=== PATIENT | male | born 1960 ===

== ENCOUNTER → 2023-05-10 | Outpatient (CLI) | payer SELFPAY | END | disposition home or self-care (01) | LOC: LAB SHORT 13:57 → LAB 13:57 | DX: R30.0 Dysuria (principal) | CPT/HCPCS: 87086 ==

== ENCOUNTER 2024-12-23 21:41 | Inpatient (IN) | payer OTHER ==
[~2024-12-23] VITALS: Ht 193 cm; Wt 106.4 kg
[~2024-12-23 21:41] MED LIST: ASPIR 8181 M1 PO; ELIQUIS5 M2 PO; ENTRESTO 49 MG1 EACH PO; FLUT.05NI; FURO20 PO; FURO40 PO; JARDIANCE10 MG PO; KATERZIA1 MG/1 ML PO; LANOXIN250 MCG PO; LOSA50 PO; METO25ER PO
[2024-12-23 22:14] LABS: BASOPHILS ABSOLUTE AUTO 0.07 K/mm3 (0.00-0.23); BASOPHILS PERCENT AUTO 1 % (0-2); EOSINOPHILS ABSOLUTE AUTO 0.29 K/mm3 (0.00-0.68); EOSINOPHILS PERCENT AUTO 4 % (0-6); Hematocrit 48.5 % (37.0-53.0); Hemoglobin 16.1 g/dL (13.5-17.5); IMMATURE GRAN ABSOLUTE AUTO 0.03 K/mm3 (0.00-0.10); IMMATURE GRAN PERCENT AUTO 0 % (0-1); LYMPHOCYTES ABSOLUTE AUTO 1.90 K/mm3 (0.84-5.20); LYMPHOCYTES PERCENT AUTO 23 % (21-46); MONOCYTES ABSOLUTE AUTO 0.74 K/mm3 (0.16-1.47); MONOCYTES PERCENT AUTO 9 % (4-13); Mean Corpuscular HGB Conc 33.2 g/dL (31.5-36.5); Mean Corpuscular Volume 85 fL (80-100); NEUTROPHILS ABSOLUTE AUTO 5.22 K/mm3 (1.96-9.15); NEUTROPHILS PERCENT AUTO 63 % (41-73); NRBC ABSOLUTE 0.00 K/mm3 (0.00-0.02); NRBC Auto 0.0 /100 WBC (0.0-0.2); Platelet Count 240 K/mm3 (150-400); RDW Coefficient Variation 17.3 % (11.7-14.2); RDW Standard Deviation 53.0 fL (35.1-46.3)
[2024-12-23 22:41] LABS: Alanine Aminotransfer (ALT/SGP 26.0 U/L (12-78); Albumin, Blood 3.8 g/dL (3.4-5.0); Albumin/Globulin Ratio 1.0 (0.8-1.8); Anion Gap 9.0 mmol/L (3-11); Aspartate Aminotrans (AST/SGOT 21.0 U/L (12-37); Bilirubin, Total 0.9 mg/dL (0.1-1.0); Blood Urea Nitrogen 24.0 mg/dL (8-24); CO2, Blood 23.0 mmol/L (21-32); Calcium, Blood 8.8 mg/dL (8.5-10.1); Chloride, Blood 111.0 mmol/L (98-108); Creatinine, Blood 1.33 mg/dL (0.60-1.20); Globulin, Blood 3.8 g/dL (2.2-4.0); Glucose, Blood 118.0 mg/dL (70-99); Potassium, Blood 3.7 mmol/L (3.5-5.5); Sodium, Blood 139.0 mmol/L (136-145); Total Protein, Blood 7.6 g/dL (6.4-8.2)
[2024-12-24] VITALS (8 sets, daily range): BP systolic 120–173; BP diastolic 86–109
[2024-12-24 01:12] LABS: Prothrombin Time Results 13.3 Sec (9.7-11.5)
[2024-12-24] MEDS ORDERED: Dose Adjust by Pharmacy XX STA ×2 (01:30→05:31)
[2024-12-24] MEDS ORDERED: Metoprolol Tartrate 1 MG/ML 5 ML VIAL IV ONE (02:45)
[2024-12-24] MEDS ORDERED: Heparin Sodium,Porcine/0.5 NS 500 ML IV SCH (06:00)
[2024-12-24] MEDS ORDERED: AMLO5 PO (06:14)
[2024-12-24 08:38] LABS: BASOPHILS ABSOLUTE AUTO 0.06 K/mm3 (0.00-0.23); BASOPHILS PERCENT AUTO 1 % (0-2); EOSINOPHILS ABSOLUTE AUTO 0.24 K/mm3 (0.00-0.68); EOSINOPHILS PERCENT AUTO 3 % (0-6); Hematocrit 49.6 % (37.0-53.0); Hemoglobin 16.6 g/dL (13.5-17.5); IMMATURE GRAN ABSOLUTE AUTO 0.05 K/mm3 (0.00-0.10); IMMATURE GRAN PERCENT AUTO 1 % (0-1); LYMPHOCYTES ABSOLUTE AUTO 1.59 K/mm3 (0.84-5.20); LYMPHOCYTES PERCENT AUTO 21 % (21-46); MONOCYTES ABSOLUTE AUTO 0.69 K/mm3 (0.16-1.47); MONOCYTES PERCENT AUTO 9 % (4-13); Mean Corpuscular HGB Conc 33.5 g/dL (31.5-36.5); Mean Corpuscular Volume 86 fL (80-100); NEUTROPHILS ABSOLUTE AUTO 4.81 K/mm3 (1.96-9.15); NEUTROPHILS PERCENT AUTO 65 % (41-73); NRBC ABSOLUTE 0.00 K/mm3 (0.00-0.02); NRBC Auto 0.0 /100 WBC (0.0-0.2); Platelet Count 235 K/mm3 (150-400); RDW Coefficient Variation 17.7 % (11.7-14.2); RDW Standard Deviation 54.2 fL (35.1-46.3)
[2024-12-24 08:59] LABS: Anion Gap 10.0 mmol/L (3-11); Blood Urea Nitrogen 16.0 mg/dL (8-24); CO2, Blood 23.0 mmol/L (21-32); Calcium, Blood 8.8 mg/dL (8.5-10.1); Chloride, Blood 111.0 mmol/L (98-108); Creatinine, Blood 0.94 mg/dL (0.60-1.20); Glucose, Blood 90.0 mg/dL (70-99); Potassium, Blood 3.6 mmol/L (3.5-5.5); Sodium, Blood 140.0 mmol/L (136-145)
[2024-12-24 13:14] LABS: CHOL/HDL RATIO 3.0; Cholesterol 170 mg/dL (50-200); HDL Cholesterol 57 mg/dL (>39); LDL/HDL RATIO 1.8; Low Density Lipoprotein Chol 101 mg/dL (0-110); Triglycerides 61 mg/dL (30-160); Very Low Density Lipoprot Chol 12 mg/dL (6-32)
[2024-12-24] MEDS ORDERED: Heparin Sodium 1000 Units/ML 10ML MDV ONE (16:12)
[2024-12-24] MEDS ORDERED: NS 2,000 ML IV ONE (16:13)
[2024-12-24] MEDS ORDERED: NS 250 ML IV ONE (16:13)
[2024-12-24] MEDS ORDERED: Nitroglycerin 2 MG/20 ML BTL ONE (16:13)
[2024-12-24] MEDS ORDERED: Verapamil HCL 2.5 MG/ML 2ML Injection ONE (16:23)
[2024-12-24] MEDS ORDERED: Midazolam HCl 1MG / ML 2ML Vial ONE (16:46)
[2024-12-24] MEDS ORDERED: FentaNYL Citrate 50 MCG/ML 2 ML Injection ONE (16:46)
--- NOTE | 2024-12-24 18:52 | NUR ---
Admit/ End of shift note. Pt admitted from the ED into PCU14. Pt was oriented to room and call light system. Pt has denied CP since arriving to the unit. Trops finally peaked. Pt has been on hep gtt until he was taken to the catheter builder. Pt vocalized a significant amount of concerns about his financial situation. industrial engineering manager visited with Pt and gave options. No interventions during angio this afternoon, Cardiology is recommending a COBRA transfer to a larger hospital for a CTS consult. Hep gtt dc d, all home meds were given. Pt is able to make needs known. Call light is within reach.
[2024-12-24] MEDS ORDERED: Sacubitril/Valsartan 49 MG/51 MG Tab PO SCH (21:00)
[2024-12-25] VITALS: BP 113/90
[2024-12-25 04:00] VITALS: BP 118/79
[2024-12-25 06:09] LABS: BASOPHILS ABSOLUTE AUTO 0.06 K/mm3 (0.00-0.23); BASOPHILS PERCENT AUTO 1 % (0-2); EOSINOPHILS ABSOLUTE AUTO 0.24 K/mm3 (0.00-0.68); EOSINOPHILS PERCENT AUTO 3 % (0-6); Hematocrit 51.5 % (37.0-53.0); Hemoglobin 16.8 g/dL (13.5-17.5); IMMATURE GRAN ABSOLUTE AUTO 0.03 K/mm3 (0.00-0.10); IMMATURE GRAN PERCENT AUTO 0 % (0-1); LYMPHOCYTES ABSOLUTE AUTO 1.44 K/mm3 (0.84-5.20); LYMPHOCYTES PERCENT AUTO 19 % (21-46); MONOCYTES ABSOLUTE AUTO 0.69 K/mm3 (0.16-1.47); MONOCYTES PERCENT AUTO 9 % (4-13); Mean Corpuscular HGB Conc 32.6 g/dL (31.5-36.5); Mean Corpuscular Volume 85 fL (80-100); NEUTROPHILS ABSOLUTE AUTO 5.11 K/mm3 (1.96-9.15); NEUTROPHILS PERCENT AUTO 68 % (41-73); NRBC ABSOLUTE 0.00 K/mm3 (0.00-0.02); NRBC Auto 0.0 /100 WBC (0.0-0.2); Platelet Count 234 K/mm3 (150-400); RDW Coefficient Variation 17.2 % (11.7-14.2); RDW Standard Deviation 52.8 fL (35.1-46.3)
--- NOTE | 2024-12-25 06:10 | NUR ---
SHIFT SUMMARY PATIENT ALERT AND ORIENTED X4. HAD NO COMPLAINTS OF PAIN OR SHORTNESS OF BREATH OVERNIGHT. ON ROOM AIR WITH SPO2 >90%. VITAL SIGNS STABLE. NO ACUTE ISSUES NOTED OVERNIGHT. WILL CONTINUE TO MONITOR. CALL LIGHT WITHIN REACH.
[2024-12-25 06:26] LABS: Anion Gap 11.0 mmol/L (3-11); Blood Urea Nitrogen 14.0 mg/dL (8-24); CO2, Blood 21.0 mmol/L (21-32); Calcium, Blood 9.1 mg/dL (8.5-10.1); Chloride, Blood 108.0 mmol/L (98-108); Creatinine, Blood 0.88 mg/dL (0.60-1.20); Glucose, Blood 87.0 mg/dL (70-99); Potassium, Blood 3.9 mmol/L (3.5-5.5); Sodium, Blood 136.0 mmol/L (136-145)
[2024-12-25 07:46] VITALS: BP 133/109
[2024-12-25] MEDS ORDERED: Fluticasone 0.05% Nasal Spray SCH (09:00)
--- NOTE | 2024-12-25 09:16 | NUR ---
ASSUMPTION OF CARE: DR. PARKS HAS ALREADY ROUNDED, WAITING FOR [facility] BED AVAILABLILITY. PATIENT ND AWARE AND DR. PARKS ANSWERED ALL QUESTIONS HE WAS CONCERNED WITH. PATIENT IS ALERT AND ORIENTED X 4 ABLE TO MAKE NEEDS KNOWN, DENIES CHEST PAIN PRESSURE OR SOB. MUCH EDUCATION GIVEN ON MEDICATION REGIMENT, PATIETN SPO2 >94 ON RA. NO ACUTE CONCERNS FROM THIS RN AT THIS TIME. ANGIO SITE AND RHC SITE CDI
[2024-12-25 10:33] VITALS: BP 128/96
[2024-12-25] MEDS ORDERED: Heparin Sodium,Porcine/0.5 NS 500 ML IV SCH (12:30)
[2024-12-25 15:07] VITALS: BP 133/109
--- NOTE | 2024-12-25 15:36 | NUR ---
COBRA TRANSFER: ONLY DARINEL FROM ASSUMPTION, IS ON HEPARIN SEE JUL, PUMP SENT WITH PATIENT, REPORT GIVEN TO CHUCK [phone], ROOM [id number] [facility]. NO ACUTE CONCERNS FROM REEVING RN. PATIENT AND , NDERSTOOD PLAN. SUBHA RN OVERSEN COBRA PACKET, IMAGING CD'S WITH PATIENT NO ACUTE CONCERNS FROM THIS RN. PLAN OF CARE CONTINUES
== END 2024-12-25 15:20 | disposition short-term general hospital (02) | DRG 281 ==
LOC: ERHOLD 21:41 → ER 21:41 → ERHOLD 21:42 → ER 21:42 → PCU 21:42 → ERHOLD 21:42 → PCU 12-24 11:03
PROVIDERS: Family Medicine; Physician Assistant; Student in an Organized Health Care Education/Training Program; ADMIT Internal Medicine
PROC: 4A023N6 Measurement of Cardiac Sampling and Pressure, Right Heart, Percutaneous Approach (ICD-10-PCS; principal; 2024-12-24)
PROC: B2111ZZ Fluoroscopy of Multiple Coronary Arteries using Low Osmolar Contrast (ICD-10-PCS; 2024-12-24)
DX: I21.4 Non-ST elevation (NSTEMI) myocardial infarction (principal); I48.20 Chronic atrial fibrillation, unspecified; I48.92 Unspecified atrial flutter; I50.22 Chronic systolic (congestive) heart failure; I25.5 Ischemic cardiomyopathy; I27.22 Pulmonary hypertension due to left heart disease; I25.10 Atherosclerotic heart disease of native coronary artery without angina pectoris; I11.0 Hypertensive heart disease with heart failure; Z79.01 Long term (current) use of anticoagulants
CPT/HCPCS: 36415; 71046; 76937; 80048; 80053; 80061; 82947; 83036; 83880; 84484; 85025; 85610; 85730; 93005; 93010; 93456; 96365; 96366; 96375; 99285-25; A9270; C1769; C1887; C1894; C8929; G0378; J1644; J2250; J3010; J7030; J7050; J7120; Q9957; Q9967